=== PATIENT | female | born 1970 | race Caucasian/White ===

== ENCOUNTER 2020-08-17 11:16 | Inpatient (IN) ==
[2020-08-17 12:14] LABS: Basophils % 0.3 %; Eosinophils # 0.3 K/mcL (0.0-0.6); Eosinophils % 3.2 %; Hematocrit 42.7 % (35.3-44.9); Hemoglobin 13.6 g/dL (11.5-15.4); Immature Granulocytes % 0.1 % (0-4); Lymphocytes # 2.5 K/mcL (0.6-4.6); Lymphocytes % 31.7 %; Mean Corpuscular HGB Conc 31.9 g/dL (31.6-35.5); Mean Corpuscular Hemoglobin 30.4 pg (28.0-33.3); Mean Corpuscular Volume 95.5 fL (83.0-100.0); Monocytes # 0.5 K/mcL (0.0-1.3); Monocytes % 5.7 %; Neutrophils # 4.7 K/mcL (1.6-8.9); Platelet Count 235 K/mcL (140-400); Red Blood Count 4.47 M/mcL (3.82-4.97); Red Cell Distribution Width 14.2 % (11.5-14.5); White Blood Count 7.9 K/mcL (4.3-11.1)
[2020-08-17 12:19] LABS: INR 1.1; Prothrombin Time 12.9 Seconds (9.4-12.1)
[2020-08-17 12:36] LABS: Alanine Aminotransferase 8 Units/L (7-52); Albumin/Globulin Ratio 1.3 (1.1-2.2); Alkaline Phosphatase 106 Units/L (34-104); Aspartate Amino Transferase 10 Units/L (13-39); BUN/Creatinine Ratio 17 (6-26); Bilirubin,Direct 0.1 mg/dL (0.0-0.2); Bilirubin,Indirect 0.3 mg/dL (0.0-1.0); Bilirubin,Total 0.4 mg/dL (0.3-1.0); Blood Urea Nitrogen 11 mg/dL (6-20); Calcium 9.3 mg/dL (8.6-10.3); Carbon Dioxide 29 mEq/L (23-29); Chloride 103 mEq/L (98-107); Globulin 3.1 g/dL (2.4-3.5); Glucose 99 mg/dL (70-105); Osmolality,Calculated 285 (280-300); Potassium 3.7 mEq/L (3.5-5.1); Sodium 138 mEq/L (136-145); Total Protein 7.1 g/dL (6.4-8.9); eGFR For African Americans > 60 (> 60); eGFR For Non-African Americans > 60 (> 60)
[2020-08-17 13:13] LABS: Adenovirus Not Detected (Not Detect); Bordetella Pertussis Not Detected (Not Detect); Chlamydophila pneumoniae Not Detected (Not Detect); Coronavirus 229E Not Detected (Not Detect); Coronavirus HKU1 Not Detected (Not Detect); Coronavirus NL63 Not Detected (Not Detect); Coronavirus OC43 Not Detected (Not Detect); Human Metapneumovirus Not Detected (Not Detect); Human Rhinovirus/Enterovirus Not Detected (Not Detect); Influenza A Subtype 2009 H1 Not Detected (Not Detect); Influenza B Not Detected (Not Detect); Mycoplasma pneumoniae Not Detected (Not Detect); Parainfluenza Virus 1 Not Detected (Not Detect); Parainfluenza Virus 2 Not Detected (Not Detect); Parainfluenza Virus 3 Not Detected (Not Detect); Parainfluenza Virus 4 Not Detected (Not Detect); Respiratory Syncytial Virus Not Detected (Not Detect); SARS-CoV-2 Not Detected (Not Detect)
[2020-08-17] MEDS ORDERED: Ipratropium/Albuterol Neb 3 ML IH ONE (13:32)
[2020-08-17] MEDS ORDERED: Isovue-370 500 ML BOTTLE IVP ONE (13:32)
[2020-08-17 14:35] LABS: Troponin I < 0.03 ng/mL (< 0.04)
[2020-08-17] MEDS ORDERED: methylPREDNISolone 125 MG/2 ML VIAL IVP ONE (15:04)
[2020-08-17] MEDS ORDERED: levoFLOXacin 750 MG/150 ML 750 MG/150 ML BAG IVPB ONE (15:16)
[2020-08-17] MEDS ORDERED: Naloxone 0.4 MG/ML INJ IVP PRN (16:49)
[2020-08-17] MEDS ORDERED: Acetaminophen 325 MG TABLET PO PRN (16:51)
[2020-08-17 17:13] LABS: Chol/HDL Ratio 6.8 (0-4.9); Cholesterol 226 mg/dL (< 200); HDL Cholesterol 33 mg/dL (40-59); LDL Cholesterol,Calculated 160 mg/dL (< 100); Triglycerides 167 mg/dL (< 150)
[2020-08-17] MEDS ORDERED: ALPRAZolam 1 MG TABLET PO ONE (20:27)
[2020-08-17] MEDS: *HR* Enoxaparin 40 MG/0.4 ML SYRINGE SQ SCH (20:35)
[2020-08-17] MEDS: Nicotine 14 MG PATCH.TD24 TD SCH (20:35)
[2020-08-17] MEDS: Ipratropium 1 PUFF INHALER IH SCH (21:35)
[2020-08-18] MEDS: Ipratropium 1 PUFF INHALER IH SCH ×4 (03:13→22:03)
[2020-08-18 06:56] LABS: Basophils % 0.1 %; Hematocrit 41.9 % (35.3-44.9); Hemoglobin 13.2 g/dL (11.5-15.4); Immature Granulocytes % 0.4 % (0-4); Lymphocytes # 1.1 K/mcL (0.6-4.6); Mean Corpuscular HGB Conc 31.5 g/dL (31.6-35.5); Mean Corpuscular Volume 95.2 fL (83.0-100.0); Mean Platelet Volume 10.5 fL (9.4-12.4); Monocytes # 0.2 K/mcL (0.0-1.3); Monocytes % 1.5 %; Neutrophils # 9.7 K/mcL (1.6-8.9); Platelet Count 232 K/mcL (140-400); Red Cell Distribution Width 13.8 % (11.5-14.5)
[2020-08-18 07:13] LABS: Alanine Aminotransferase 8 Units/L (7-52); Albumin 3.9 g/dL (3.5-5.7); Albumin/Globulin Ratio 1.3 (1.1-2.2); Alkaline Phosphatase 103 Units/L (34-104); Aspartate Amino Transferase 9 Units/L (13-39); BUN/Creatinine Ratio 22 (6-26); Bilirubin,Total 0.3 mg/dL (0.3-1.0); Blood Urea Nitrogen 15 mg/dL (6-20); Calcium 9.6 mg/dL (8.6-10.3); Carbon Dioxide 31 mEq/L (23-29); Chloride 101 mEq/L (98-107); Glucose 144 mg/dL (70-105); Magnesium 1.9 mg/dL (1.6-2.6); Osmolality,Calculated 287 (280-300); Phosphorous 2.6 mg/dL (2.7-4.5); Potassium 4.1 mEq/L (3.5-5.1); Sodium 137 mEq/L (136-145); Total Protein 6.9 g/dL (6.4-8.9); eGFR For African Americans > 60 (> 60); eGFR For Non-African Americans > 60 (> 60)
[2020-08-18 07:24] LABS: Lactate Dehydrogenase 113 Units/L (140-271)
[2020-08-18 07:32] LABS: Ferritin 29 ng/mL (10-120)
[2020-08-18] MEDS ORDERED: GuaiFENesin Liq 200 MG/10 ML UDC PO PRN (08:50)
[2020-08-18] MEDS ORDERED: Furosemide 40 MG TABLET PO SCH (09:00)
[2020-08-18] MEDS ORDERED: ALPRAZolam 1 MG TABLET PO SCH (09:00)
[2020-08-18] MEDS: *HR* Enoxaparin 40 MG/0.4 ML SYRINGE SQ SCH ×2 (09:17→20:31)
[2020-08-18] MEDS: Gabapentin 300 MG CAPSULE PO SCH ×4 (09:17→20:32)
[2020-08-18] MEDS: Nicotine 14 MG PATCH.TD24 TD SCH (09:17)
[2020-08-18 09:18] LABS: C-Reactive Protein 38 mg/L (Less than 10)
[2020-08-18] MEDS ORDERED: ALPRAZolam 0.5 MG TABLET PO PRN (13:54)
[2020-08-18] MEDS: levoFLOXacin 750 MG/150 ML 750 MG/150 ML BAG IVPB SCH (16:44)
[2020-08-18] MEDS: Dexamethasone 4 MG/ML VIAL IVP SCH (16:46)
[2020-08-18] MEDS: risperiDONE 0.25 MG TABLET PO SCH ×2 (20:31)
[2020-08-18] MEDS: *HR* Buprenorphine HCl 2 MG SUBLINGUAL TABLET SL SCH (20:32)
[2020-08-18] MEDS: Loratadine 10 MG TABLET PO SCH (20:32)
[2020-08-18] MEDS: Furosemide 40 MG/4 ML VIAL IVP SCH (20:32)
[2020-08-19 02:25] LABS: Hematocrit 41.1 % (35.3-44.9); Hemoglobin 12.8 g/dL (11.5-15.4); Mean Corpuscular HGB Conc 31.1 g/dL (31.6-35.5); Mean Corpuscular Hemoglobin 30.3 pg (28.0-33.3); Mean Corpuscular Volume 97.2 fL (83.0-100.0); Mean Platelet Volume 10.6 fL (9.4-12.4); Platelet Count 228 K/mcL (140-400); Red Blood Count 4.23 M/mcL (3.82-4.97); Red Cell Distribution Width 13.9 % (11.5-14.5); White Blood Count 16.1 K/mcL (4.3-11.1)
[2020-08-19 02:40] LABS: BUN/Creatinine Ratio 24 (6-26); Blood Urea Nitrogen 18 mg/dL (6-20); Calcium 9.6 mg/dL (8.6-10.3); Carbon Dioxide 31 mEq/L (23-29); Chloride 96 mEq/L (98-107); Glucose 186 mg/dL (70-105); Osmolality,Calculated 289 (280-300); Potassium 4.1 mEq/L (3.5-5.1); Sodium 136 mEq/L (136-145); eGFR For African Americans > 60 (> 60); eGFR For Non-African Americans > 60 (> 60)
[2020-08-19] MEDS: Ipratropium 1 PUFF INHALER IH SCH ×4 (03:21→22:53)
[2020-08-19] MEDS: risperiDONE 0.25 MG TABLET PO SCH ×2 (09:15→14:08)
[2020-08-19] MEDS: Loratadine 10 MG TABLET PO SCH (09:15)
[2020-08-19] MEDS: *HR* Buprenorphine HCl 2 MG SUBLINGUAL TABLET SL SCH (09:15)
[2020-08-19] MEDS: Furosemide 40 MG/4 ML VIAL IVP SCH (09:16)
[2020-08-19] MEDS: Dexamethasone 4 MG/ML VIAL IVP SCH (09:16)
[2020-08-19] MEDS: Nicotine 14 MG PATCH.TD24 TD SCH (09:17)
[2020-08-19] MEDS: *HR* Enoxaparin 40 MG/0.4 ML SYRINGE SQ SCH (09:17)
[2020-08-19] MEDS: Gabapentin 300 MG CAPSULE PO SCH ×3 (09:19→14:06)
[2020-08-19] MEDS ORDERED: NON-FORMULARY MEDICATION 1 EACH EACH (Duloxetine Hcl [Cymbalta] 60 MG) PO SCH (14:45)
[2020-08-19] MEDS ORDERED: Lurasidone 20 MG TABLET PO SCH (14:45)
[2020-08-19] MEDS ORDERED: Gabapentin 300 MG CAPSULE PO SCH (15:00)
[2020-08-19] MEDS: levoFLOXacin 750 MG/150 ML 750 MG/150 ML BAG IVPB SCH (15:46)
[2020-08-19 17:25] VITALS: BP 109/93
== END 2020-08-19 16:50 | disposition home or self-care (01) | DRG 139 ==
LOC: EMEROOARM 11:16 → 2NENU 11:16 → SUATTDRO 16:02 → 2NENU 18:14
PROVIDERS: ADMIT Internal Medicine; ATTEND Internal Medicine

== ENCOUNTER 2022-01-02 15:53 | Inpatient (IN) ==
[2022-01-02 17:12] LABS: Bilirubin,Urine Negative (Negative); Blood,Urine Negative (Negative); Clarity,Urine Clear (Clear); Color,Urine Yellow (Yellow); Glucose,Urine (UA) Normal (Normal); Ketones,Urine Negative (Negative); Leukocyte Esterase,Urine Negative (Negative); Nitrite,Urine Negative (Negative); PH,Urine 6.5 pH Units (5.0-8.0); Protein,Urine Trace mg/dL (Neg-Trace); Specific Gravity,Urine 1.015 (1.010-1.025)
[2022-01-02 17:19] LABS: Basophils % 0.3 %; Eosinophils % 0.6 %; Hematocrit 48.1 % (35.3-44.9); Immature Granulocytes % 0.6 % (0-4); Lymphocytes # 1.8 K/mcL (0.6-4.6); Lymphocytes % 27.3 %; Mean Corpuscular HGB Conc 31.2 g/dL (31.6-35.5); Mean Corpuscular Hemoglobin 25.5 pg (28.0-33.3); Mean Corpuscular Volume 81.7 fL (83.0-100.0); Mean Platelet Volume 10.2 fL (9.4-12.4); Monocytes # 0.4 K/mcL (0.0-1.3); Monocytes % 5.3 %; Neutrophils # 4.4 K/mcL (1.6-8.9); Nucleated Red Blood Cells 0.3 /100 WBC (0); Platelet Count 301 K/mcL (140-400); Red Blood Count 5.89 M/mcL (3.82-4.97); Red Cell Distribution Width 22.1 % (11.5-14.5); Segmented Neutrophils % 65.9 %; White Blood Count 6.6 K/mcL (4.3-11.1)
[2022-01-02 17:23] LABS: Amphetamine Screen,Urine Negative ng/mL (Cutoff=1000); Barbiturate Screen,Urine Negative ng/mL (Cutoff=200); Benzodiazepines Screen,Urine Positive ng/mL (Cutoff=200); Cannabinoid Screen,Urine Negative ng/mL (Cutoff = 50); Cocaine Screen,Urine Negative ng/mL (Cutoff= 300); Opiate Screen,Urine Negative ng/mL (Cutoff=300); Phencyclidine Screen,Urine Negative ng/mL (Cutoff=25)
[2022-01-02 17:41] LABS: Calcium 10.4 mg/dL (8.6-10.3); Potassium 3.6 mEq/L (3.5-5.1)
[2022-01-02] MEDS ORDERED: 0.9 % Sodium Chloride 1,000 ML IVC ONE ×2 (18:03→22:16)
[2022-01-02 18:36] LABS: VBG HCO3 42 mEq/L (21-27); VBG PCO2 38 mmHg (41-51); VBG PH 7.65 pH Units (7.32-7.42); VBG PO2 90 mmHg (25-50)
[2022-01-02] MEDS ORDERED: Aspirin 325 MG TABLET PO ONE (19:48)
[2022-01-02] MEDS ORDERED: *HR* Heparin 5,000 UNIT/ML VIAL IVP PRN (19:49)
[2022-01-02] MEDS ORDERED: *HR* Heparin 5,000 UNIT/ML VIAL IVP ONE (19:49)
[2022-01-02] MEDS: Heparin 25,000UNIT/250ML 1/2NS 25,000 UNIT/250 ML IV.SOLN IVC SCH (20:03)
[2022-01-02 20:35] LABS: Hematocrit 47.4 % (35.3-44.9); Hemoglobin 14.8 g/dL (11.5-15.4); Mean Corpuscular HGB Conc 31.2 g/dL (31.6-35.5); Mean Corpuscular Hemoglobin 25.5 pg (28.0-33.3); Mean Corpuscular Volume 81.7 fL (83.0-100.0); Mean Platelet Volume 10.1 fL (9.4-12.4); Platelet Count 270 K/mcL (140-400); Red Cell Distribution Width 21.6 % (11.5-14.5); White Blood Count 8.7 K/mcL (4.3-11.1)
[2022-01-02 20:46] LABS: Heparin anti-factor XA UFH < 0.04 IU/mL (0.30-0.70)
[2022-01-02 20:47] LABS: INR 1.2; Prothrombin Time 13.1 Seconds (9.4-12.1)
[2022-01-02] MEDS ORDERED: Naloxone 0.4 MG/ML INJ IVP PRN ×2 (21:03→21:05)
[2022-01-02] MEDS ORDERED: Acetaminophen 325 MG TABLET PO PRN (21:05)
[2022-01-02] MEDS ORDERED: 0.9 % Sodium Chloride 1,000 ML IVC SCH (21:15)
[2022-01-02 22:20] LABS: Acetaminophen < 10 mcg/mL (10-20); Salicylate < 2.5 mg/dL (15.0-30.0)
[2022-01-02] MEDS ORDERED: Perflutren Lipid Microsphere 1.3 ML in 0.9 % Sodium Chloride 8.7 ML IVP PRN (22:45)
[2022-01-02] MEDS ORDERED: ALPRAZolam 0.5 MG TABLET PO PRN (22:48)
[2022-01-02 23:19] LABS: ABG Base Excess 19 mEq/L (-2 to 3); ABG HCO3 44 mEq/L (21-27); ABG Oxygen Saturation 93 % (95-98); ABG PCO2 47 mmHg (35-45); ABG PH 7.58 pH Units (7.32-7.45); ABG PO2 58 mmHg (85-104); ABG TCO2 45 mEq/L (20-26)
[2022-01-02] MEDS: 0.9 % Sodium Chloride 1,000 ML IVC SCH (23:57)
[2022-01-03] MEDS: *HR* Heparin 5,000 UNIT/ML VIAL IVP PRN ×2 (03:07→10:23)
[2022-01-03 04:48] LABS: ABG Base Excess 13 mEq/L (-2 to 3); ABG HCO3 40 mEq/L (21-27); ABG Oxygen Saturation 93 % (95-98); ABG PCO2 60 mmHg (35-45); ABG PH 7.44 pH Units (7.32-7.45); ABG PO2 67 mmHg (85-104); ABG TCO2 42 mEq/L (20-26)
[2022-01-03 06:07] LABS: Basophils % 0.3 %; Eosinophils # 0.1 K/mcL (0.0-0.6); Eosinophils % 1.2 %; Hematocrit 40.7 % (35.3-44.9); Immature Granulocytes % 0.4 % (0-4); Lymphocytes # 2.3 K/mcL (0.6-4.6); Lymphocytes % 34.1 %; Mean Corpuscular HGB Conc 30.5 g/dL (31.6-35.5); Mean Corpuscular Hemoglobin 25.4 pg (28.0-33.3); Mean Corpuscular Volume 83.4 fL (83.0-100.0); Mean Platelet Volume 10.3 fL (9.4-12.4); Monocytes # 0.3 K/mcL (0.0-1.3); Monocytes % 4.8 %; Platelet Count 214 K/mcL (140-400); Red Blood Count 4.88 M/mcL (3.82-4.97); Segmented Neutrophils % 59.2 %; White Blood Count 6.7 K/mcL (4.3-11.1)
[2022-01-03 06:08] LABS: Hemoglobin 12.4 g/dL (11.5-15.4)
[2022-01-03 06:42] LABS: Albumin 3.2 g/dL (3.5-5.7); Albumin/Globulin Ratio 1.1 (1.1-2.2); Bilirubin,Total 1.4 mg/dL (0.3-1.0); Calcium 9.2 mg/dL (8.6-10.3); Globulin 2.8 g/dL (2.4-3.5); Magnesium 2.2 mg/dL (1.6-2.6); Phosphorous 3.4 mg/dL (2.7-4.5)
[2022-01-03] MEDS: 0.9 % Sodium Chloride 1,000 ML IVC SCH (07:11)
[2022-01-03] MEDS: *HR* Buprenorphine HCl 8 MG TAB.SUBL SL SCH (08:39)
[2022-01-03] MEDS ORDERED: Nitroglycerin 0.4 MG TAB.SUBL SL PRN (10:42)
[2022-01-03] MEDS: 0.9 % Sodium Chloride w KCl 40 MEQ/1,000 ML MLS IVC SCH (10:58)
[2022-01-03] MEDS: Nystatin POWDER 30 GM BOTTLE TP SCH ×2 (11:05→22:07)
[2022-01-03 14:07] LABS: BUN/Creatinine Ratio 25 (6-26); Blood Urea Nitrogen 26 mg/dL (6-20); Calcium 9.8 mg/dL (8.6-10.3); Carbon Dioxide 38 mEq/L (23-29); Chloride 88 mEq/L (98-107); Glucose 91 mg/dL (70-105); Osmolality,Calculated 288 (280-300); Potassium 2.5 mEq/L (3.5-5.1); Sodium 137 mEq/L (136-145); eGFR For African Americans > 60 (> 60); eGFR For Non-African Americans 56 (> 60)
[2022-01-03] MEDS: ALPRAZolam 0.5 MG TABLET PO SCH ×2 (15:36→20:35)
[2022-01-03] MEDS: Heparin 25,000UNIT/250ML 1/2NS 25,000 UNIT/250 ML IV.SOLN IVC SCH (16:51)
[2022-01-03 17:56] LABS: BUN/Creatinine Ratio 26 (6-26); Blood Urea Nitrogen 24 mg/dL (6-20); Calcium 9.3 mg/dL (8.6-10.3); Carbon Dioxide 37 mEq/L (23-29); Chloride 92 mEq/L (98-107); Glucose 79 mg/dL (70-105); Osmolality,Calculated 287 (280-300); Potassium 2.4 mEq/L (3.5-5.1); Sodium 137 mEq/L (136-145); eGFR For African Americans > 60 (> 60); eGFR For Non-African Americans > 60 (> 60)
[2022-01-03 22:11] LABS: % Iron Saturation 7 % (15-50); Iron 36 mcg/dL (50-170); Transferrin 378 mg/dL (203-362)
[2022-01-03 22:19] LABS: BUN/Creatinine Ratio 23 (6-26); Blood Urea Nitrogen 22 mg/dL (6-20); Calcium 9.5 mg/dL (8.6-10.3); Carbon Dioxide 38 mEq/L (23-29); Chloride 91 mEq/L (98-107); Glucose 88 mg/dL (70-105); Osmolality,Calculated 285 (280-300); Potassium 2.5 mEq/L (3.5-5.1); Sodium 136 mEq/L (136-145); eGFR For African Americans > 60 (> 60); eGFR For Non-African Americans > 60 (> 60)
[2022-01-03] MEDS ORDERED: Iron Sucrose Complex 200 MG in 0.9 % Sodium Chloride 100 ML IVPB ONE (22:20)
[2022-01-03] MEDS ORDERED: Potassium Chloride Elixir 20 MEQ/15 ML UDC PO ONE (22:20)
[2022-01-04 00:56] LABS: Basophils % 0.3 %; Eosinophils # 0.2 K/mcL (0.0-0.6); Eosinophils % 2.3 %; Hematocrit 41.7 % (35.3-44.9); Hemoglobin 13.1 g/dL (11.5-15.4); Immature Granulocytes % 0.4 % (0-4); Lymphocytes # 2.3 K/mcL (0.6-4.6); Lymphocytes % 30.8 %; Mean Corpuscular HGB Conc 31.4 g/dL (31.6-35.5); Mean Corpuscular Volume 82.9 fL (83.0-100.0); Mean Platelet Volume 10.1 fL (9.4-12.4); Monocytes # 0.4 K/mcL (0.0-1.3); Monocytes % 4.7 %; Neutrophils # 4.6 K/mcL (1.6-8.9); Platelet Count 224 K/mcL (140-400); Red Blood Count 5.03 M/mcL (3.82-4.97); Red Cell Distribution Width 22.2 % (11.5-14.5); Segmented Neutrophils % 61.5 %; White Blood Count 7.5 K/mcL (4.3-11.1)
[2022-01-04 01:02] LABS: Chol/HDL Ratio 5.8 (0-4.9)
[2022-01-04 01:03] LABS: BUN/Creatinine Ratio 22 (6-26); Blood Urea Nitrogen 20 mg/dL (6-20); Calcium 9.6 mg/dL (8.6-10.3); Carbon Dioxide 35 mEq/L (23-29); Chloride 92 mEq/L (98-107); Glucose 75 mg/dL (70-105); Magnesium 1.9 mg/dL (1.6-2.6); Osmolality,Calculated 281 (280-300); Potassium 2.6 mEq/L (3.5-5.1); Sodium 135 mEq/L (136-145); eGFR For African Americans > 60 (> 60); eGFR For Non-African Americans > 60 (> 60)
[2022-01-04] MEDS: Melatonin 3 MG TABLET PO PRN (02:08)
[2022-01-04] MEDS: Ondansetron 4 MG/2 ML VIAL IVP PRN ×4 (02:19→23:40)
[2022-01-04] MEDS: *HR* Heparin 5,000 UNIT/ML VIAL IVP PRN ×3 (02:19→22:38)
[2022-01-04] MEDS: 0.9 % Sodium Chloride w KCl 40 MEQ/1,000 ML MLS IVC SCH ×4 (07:24→23:16)
[2022-01-04] MEDS: *HR* Buprenorphine HCl 8 MG TAB.SUBL SL SCH (08:19)
[2022-01-04] MEDS: ALPRAZolam 0.5 MG TABLET PO SCH ×3 (08:19→20:45)
[2022-01-04] MEDS: Nystatin POWDER 30 GM BOTTLE TP SCH ×2 (08:20→21:20)
[2022-01-04] MEDS: Aspirin 81 MG TAB.CHEW PO SCH (08:20)
[2022-01-04] MEDS ORDERED: Potassium Chloride Elixir 20 MEQ/15 ML UDC PO ONE (08:45)
[2022-01-04] MEDS: 0.9 % Sodium Chloride 1,000 ML IVC SCH ×2 (09:28→15:41)
[2022-01-04] MEDS: Heparin 25,000UNIT/250ML 1/2NS 25,000 UNIT/250 ML IV.SOLN IVC SCH (12:59)
[2022-01-04 15:24] LABS: BUN/Creatinine Ratio 16 (6-26); Blood Urea Nitrogen 13 mg/dL (6-20); Calcium 9.7 mg/dL (8.6-10.3); Carbon Dioxide 37 mEq/L (23-29); Chloride 94 mEq/L (98-107); Glucose 111 mg/dL (70-105); Osmolality,Calculated 285 (280-300); Potassium 3.4 mEq/L (3.5-5.1); Sodium 137 mEq/L (136-145); eGFR For African Americans > 60 (> 60); eGFR For Non-African Americans > 60 (> 60)
[2022-01-04] MEDS ORDERED: Gadolinium Contrast Agent (WT Based) IV PRN (16:31)
[2022-01-04] MEDS: Nicotine 21 MG PATCH.TD24 TD SCH (17:58)
[2022-01-04] MEDS: Pantoprazole 40 MG VIAL IVP SCH (20:45)
[2022-01-05] MEDS: 0.9 % Sodium Chloride 1,000 ML IVC SCH (02:39)
[2022-01-05] MEDS: Ondansetron 4 MG/2 ML VIAL IVP PRN ×2 (03:49→08:49)
[2022-01-05] MEDS: Heparin 25,000UNIT/250ML 1/2NS 25,000 UNIT/250 ML IV.SOLN IVC SCH (05:40)
[2022-01-05 06:10] LABS: BUN/Creatinine Ratio 11 (6-26); Blood Urea Nitrogen 8 mg/dL (6-20); Calcium 9.8 mg/dL (8.6-10.3); Carbon Dioxide 33 mEq/L (23-29); Chloride 95 mEq/L (98-107); Potassium 2.9 mEq/L (3.5-5.1); Sodium 137 mEq/L (136-145); eGFR For African Americans > 60 (> 60); eGFR For Non-African Americans > 60 (> 60)
[2022-01-05 06:13] LABS: Basophils % 0.5 %; Eosinophils # 0.2 K/mcL (0.0-0.6); Eosinophils % 3.1 %; Hematocrit 41.6 % (35.3-44.9); Hemoglobin 12.5 g/dL (11.5-15.4); Immature Granulocytes % 0.3 % (0-4); Lymphocytes # 2.2 K/mcL (0.6-4.6); Mean Corpuscular Hemoglobin 25.4 pg (28.0-33.3); Mean Corpuscular Volume 84.6 fL (83.0-100.0); Mean Platelet Volume 10.3 fL (9.4-12.4); Monocytes # 0.2 K/mcL (0.0-1.3); Neutrophils # 3.4 K/mcL (1.6-8.9); Platelet Count 206 K/mcL (140-400); Red Blood Count 4.92 M/mcL (3.82-4.97); Red Cell Distribution Width 22.1 % (11.5-14.5); Segmented Neutrophils % 56.1 %; White Blood Count 6.1 K/mcL (4.3-11.1)
[2022-01-05 08:35] LABS: Glucose 77 mg/dL (70-105); Osmolality,Calculated 281 (280-300)
[2022-01-05] MEDS: ALPRAZolam 0.5 MG TABLET PO SCH ×2 (08:44→20:15)
[2022-01-05] MEDS: Aspirin 81 MG TAB.CHEW PO SCH (08:44)
[2022-01-05] MEDS: Pantoprazole 40 MG VIAL IVP SCH (08:44)
[2022-01-05] MEDS: Nicotine 21 MG PATCH.TD24 TD SCH (08:45)
[2022-01-05] MEDS: *HR* Buprenorphine HCl 8 MG TAB.SUBL SL SCH (08:49)
[2022-01-05] MEDS: Nystatin POWDER 30 GM BOTTLE TP SCH ×2 (08:50→20:16)
[2022-01-05] MEDS: *HR* Heparin 5,000 UNIT/ML VIAL SQ SCH ×2 (13:12→20:15)
[2022-01-05 15:43] LABS: BUN/Creatinine Ratio 9 (6-26); Blood Urea Nitrogen 7 mg/dL (6-20); Calcium 9.9 mg/dL (8.6-10.3); Carbon Dioxide 33 mEq/L (23-29); Chloride 96 mEq/L (98-107); Glucose 92 mg/dL (70-105); Osmolality,Calculated 280 (280-300); Potassium 4.1 mEq/L (3.5-5.1); Sodium 136 mEq/L (136-145); eGFR For African Americans > 60 (> 60); eGFR For Non-African Americans > 60 (> 60)
[2022-01-05] MEDS: 0.9 % Sodium Chloride w KCl 40 MEQ/1,000 ML MLS IVC SCH (16:10)
[2022-01-06] MEDS: 0.9 % Sodium Chloride w KCl 40 MEQ/1,000 ML MLS IVC SCH (00:55)
[2022-01-06] MEDS: *HR* Heparin 5,000 UNIT/ML VIAL SQ SCH ×3 (05:03→22:43)
[2022-01-06 07:07] LABS: BUN/Creatinine Ratio 9 (6-26); Blood Urea Nitrogen 6 mg/dL (6-20); Calcium 9.6 mg/dL (8.6-10.3); Carbon Dioxide 32 mEq/L (23-29); Chloride 99 mEq/L (98-107); Glucose 90 mg/dL (70-105); Osmolality,Calculated 283 (280-300); Potassium 3.6 mEq/L (3.5-5.1); Sodium 138 mEq/L (136-145); eGFR For African Americans > 60 (> 60); eGFR For Non-African Americans > 60 (> 60)
[2022-01-06] MEDS: Nicotine 21 MG PATCH.TD24 TD SCH (10:33)
[2022-01-06] MEDS: Magnesium Oxide 400 MG TABLET PO SCH ×2 (10:34→22:42)
[2022-01-06] MEDS: Nystatin POWDER 30 GM BOTTLE TP SCH ×2 (10:34→22:42)
[2022-01-06] MEDS: Aspirin 81 MG TAB.CHEW PO SCH (10:34)
[2022-01-06] MEDS: ALPRAZolam 0.5 MG TABLET PO SCH ×2 (10:34→22:42)
[2022-01-06] MEDS: *HR* Buprenorphine HCl 8 MG TAB.SUBL SL SCH (10:39)
[2022-01-06] MEDS ORDERED: *HR* LORazepam 2 MG/ML VIAL IVP ONE (11:17)
[2022-01-06 15:47] LABS: BUN/Creatinine Ratio 10 (6-26); Blood Urea Nitrogen 7 mg/dL (6-20); Calcium 9.6 mg/dL (8.6-10.3); Carbon Dioxide 34 mEq/L (23-29); Chloride 99 mEq/L (98-107); Glucose 99 mg/dL (70-105); Osmolality,Calculated 284 (280-300); Potassium 3.7 mEq/L (3.5-5.1); Sodium 138 mEq/L (136-145); eGFR For African Americans > 60 (> 60); eGFR For Non-African Americans > 60 (> 60)
[2022-01-06] MEDS: Ondansetron 4 MG/2 ML VIAL IVP PRN ×2 (18:18→22:50)
[2022-01-07 06:16] LABS: Basophils % 0.6 %; Eosinophils # 0.2 K/mcL (0.0-0.6); Eosinophils % 3.2 %; Hematocrit 38.7 % (35.3-44.9); Hemoglobin 11.5 g/dL (11.5-15.4); Immature Granulocytes % 0.2 % (0-4); Lymphocytes # 1.9 K/mcL (0.6-4.6); Lymphocytes % 37.9 %; Mean Corpuscular HGB Conc 29.7 g/dL (31.6-35.5); Mean Corpuscular Hemoglobin 25.6 pg (28.0-33.3); Mean Corpuscular Volume 86.2 fL (83.0-100.0); Mean Platelet Volume 9.9 fL (9.4-12.4); Monocytes # 0.3 K/mcL (0.0-1.3); Monocytes % 5.5 %; Neutrophils # 2.7 K/mcL (1.6-8.9); Platelet Count 198 K/mcL (140-400); Red Blood Count 4.49 M/mcL (3.82-4.97); Red Cell Distribution Width 22.4 % (11.5-14.5); Segmented Neutrophils % 52.6 %; White Blood Count 5.1 K/mcL (4.3-11.1)
[2022-01-07 06:36] LABS: BUN/Creatinine Ratio 13 (6-26); Blood Urea Nitrogen 9 mg/dL (6-20); Calcium 9.8 mg/dL (8.6-10.3); Carbon Dioxide 32 mEq/L (23-29); Chloride 99 mEq/L (98-107); Glucose 96 mg/dL (70-105); Osmolality,Calculated 283 (280-300); Potassium 3.7 mEq/L (3.5-5.1); Sodium 137 mEq/L (136-145); eGFR For African Americans > 60 (> 60); eGFR For Non-African Americans > 60 (> 60)
[2022-01-07] MEDS: *HR* Heparin 5,000 UNIT/ML VIAL SQ SCH ×3 (07:00→20:31)
[2022-01-07] MEDS: *HR* Buprenorphine HCl 8 MG TAB.SUBL SL SCH (10:04)
[2022-01-07] MEDS: Magnesium Oxide 400 MG TABLET PO SCH ×2 (10:04→20:31)
[2022-01-07] MEDS: Aspirin 81 MG TAB.CHEW PO SCH (10:04)
[2022-01-07] MEDS: ALPRAZolam 0.5 MG TABLET PO SCH ×2 (10:05→20:31)
[2022-01-07] MEDS: Nystatin POWDER 30 GM BOTTLE TP SCH ×2 (10:09→20:33)
[2022-01-07] MEDS: Nicotine 21 MG PATCH.TD24 TD SCH (10:09)
[2022-01-07] MEDS: Ondansetron 4 MG/2 ML VIAL IVP PRN (15:44)
[2022-01-07] MEDS ORDERED: Ketorolac 30 MG/ML VIAL IVP ONE (21:10)
[2022-01-07] MEDS ORDERED: 0.9 % Sodium Chloride 500 ML IVC SCH (21:15)
[2022-01-08] MEDS: Melatonin 3 MG TABLET PO PRN ×2 (00:39→22:48)
[2022-01-08] MEDS: *HR* Heparin 5,000 UNIT/ML VIAL SQ SCH ×3 (06:14→20:35)
[2022-01-08 06:41] LABS: BUN/Creatinine Ratio 17 (6-26); Blood Urea Nitrogen 13 mg/dL (6-20); Calcium 9.7 mg/dL (8.6-10.3); Carbon Dioxide 33 mEq/L (23-29); Chloride 99 mEq/L (98-107); Glucose 90 mg/dL (70-105); Osmolality,Calculated 286 (280-300); Potassium 3.7 mEq/L (3.5-5.1); Sodium 138 mEq/L (136-145); eGFR For African Americans > 60 (> 60); eGFR For Non-African Americans > 60 (> 60)
[2022-01-08] MEDS: Magnesium Oxide 400 MG TABLET PO SCH ×2 (08:33→20:33)
[2022-01-08] MEDS: ALPRAZolam 0.5 MG TABLET PO SCH ×2 (08:33→20:33)
[2022-01-08] MEDS: Nicotine 21 MG PATCH.TD24 TD SCH (08:33)
[2022-01-08] MEDS: Aspirin 81 MG TAB.CHEW PO SCH (08:33)
[2022-01-08] MEDS: Nystatin POWDER 30 GM BOTTLE TP SCH ×2 (08:34→20:35)
[2022-01-08] MEDS: *HR* Buprenorphine HCl 8 MG TAB.SUBL SL SCH (08:36)
[2022-01-08] MEDS: 0.9 % Sodium Chloride w KCl 40 MEQ/1,000 ML MLS IVC SCH (17:04)
[2022-01-08 22:00] LABS: Bacteria,Urine Few per hpf (None-Few); Bilirubin,Urine Negative (Negative); Blood,Urine Negative (Negative); Clarity,Urine Clear (Clear); Color,Urine Light-Yellow (Yellow); Glucose,Urine (UA) Normal (Normal); Hyaline Casts,Urine Few per lpf (None Seen); Ketones,Urine Negative (Negative); Leukocyte Esterase,Urine Moderate (Negative); Mucus,Urine Few per lpf (None-Few); Nitrite,Urine Positive (Negative); Protein,Urine 30 mg/dL (Neg-Trace); Specific Gravity,Urine 1.018 (1.010-1.025); Squamous Epithelial Cell,Urine Few per hpf (None-Few); Urobilinogen,Urine Normal (Normal); WBC,Urine 30-50 per hpf (0-3)
[2022-01-09] MEDS ORDERED: 0.9 % Sodium Chloride 500 ML IVC ONE (02:29)
[2022-01-09] MEDS ORDERED: Albumin 25% 25gram/100mL 25 GM/100 ML IV.SOLN IVPB ONE (02:29)
[2022-01-09] MEDS: levoFLOXacin 750 MG/150 ML 750 MG/150 ML BAG IVPB SCH ×2 (04:40→07:45)
[2022-01-09] MEDS: *HR* Heparin 5,000 UNIT/ML VIAL SQ SCH ×3 (06:18→20:06)
[2022-01-09] MEDS: OLANZapine 10 MG TAB.RAPDIS PO SCH (07:44)
[2022-01-09] MEDS: ALPRAZolam 0.5 MG TABLET PO SCH ×2 (07:44→20:05)
[2022-01-09] MEDS: Aspirin 81 MG TAB.CHEW PO SCH (07:45)
[2022-01-09] MEDS: Magnesium Oxide 400 MG TABLET PO SCH ×2 (07:45→20:06)
[2022-01-09] MEDS: Nicotine 21 MG PATCH.TD24 TD SCH (07:45)
[2022-01-09] MEDS: *HR* Buprenorphine HCl 8 MG TAB.SUBL SL SCH (07:45)
[2022-01-09] MEDS: Nystatin POWDER 30 GM BOTTLE TP SCH ×2 (07:47→20:06)
[2022-01-09] MEDS: Ondansetron 4 MG/2 ML VIAL IVP PRN (08:01)
[2022-01-09 18:08] LABS: VBG Chloride 102 mEq/L (98-107); VBG Creatinine 0.82 mg/dL (0.57-1.11); VBG Glucose 91 mg/dl (65-95)
[2022-01-09 18:09] LABS: Basophils % 0.5 %; Eosinophils # 0.2 K/mcL (0.0-0.6); Eosinophils % 3.8 %; Hematocrit 40.1 % (35.3-44.9); Immature Granulocytes % 0.5 % (0-4); Lymphocytes # 1.5 K/mcL (0.6-4.6); Mean Corpuscular HGB Conc 29.9 g/dL (31.6-35.5); Mean Corpuscular Hemoglobin 25.8 pg (28.0-33.3); Mean Corpuscular Volume 86.2 fL (83.0-100.0); Mean Platelet Volume 10.2 fL (9.4-12.4); Monocytes # 0.2 K/mcL (0.0-1.3); Monocytes % 5.8 %; Neutrophils # 2.1 K/mcL (1.6-8.9); Platelet Count 195 K/mcL (140-400); Red Blood Count 4.65 M/mcL (3.82-4.97); Red Cell Distribution Width 22.2 % (11.5-14.5); Segmented Neutrophils % 52.4 %
[2022-01-09 18:28] LABS: BUN/Creatinine Ratio 15 (6-26); Blood Urea Nitrogen 12 mg/dL (6-20); Calcium 9.6 mg/dL (8.6-10.3); Carbon Dioxide 32 mEq/L (23-29); Chloride 102 mEq/L (98-107); Glucose 93 mg/dL (70-105); Magnesium 1.9 mg/dL (1.6-2.6); Osmolality,Calculated 287 (280-300); Phosphorous 3.4 mg/dL (2.7-4.5); Potassium 4.2 mEq/L (3.5-5.1); Sodium 139 mEq/L (136-145); eGFR For African Americans > 60 (> 60); eGFR For Non-African Americans > 60 (> 60)
[2022-01-09 18:29] LABS: Albumin 3.7 g/dL (3.5-5.7); Albumin/Globulin Ratio 1.4 (1.1-2.2); Bilirubin,Direct 0.1 mg/dL (0.0-0.2); Bilirubin,Indirect 0.3 mg/dL (0.0-1.0); Bilirubin,Total 0.4 mg/dL (0.3-1.0); Globulin 2.6 g/dL (2.4-3.5); Total Protein 6.3 g/dL (6.4-8.9)
[2022-01-09 18:45] LABS: Thyroid Stimulating Hormone 0.831 mcIU/mL (0.340-5.600)
[2022-01-10] MEDS: *HR* Heparin 5,000 UNIT/ML VIAL SQ SCH ×2 (05:38→13:19)
[2022-01-10 07:32] VITALS: TEMP 98.2
[2022-01-10] MEDS ORDERED: Nitrofurantoin (BID) 100 MG CAPSULE PO SCH (08:00)
[2022-01-10] MEDS: cefTRIAXone 1,000 MG in 0.9 % Sodium Chloride 10 ML IVP SCH ×2 (08:15→09:29)
[2022-01-10] MEDS: Nicotine 21 MG PATCH.TD24 TD SCH (08:15)
[2022-01-10] MEDS: Magnesium Oxide 400 MG TABLET PO SCH (08:17)
[2022-01-10] MEDS: ALPRAZolam 0.5 MG TABLET PO SCH (08:17)
[2022-01-10] MEDS: Aspirin 81 MG TAB.CHEW PO SCH (08:17)
[2022-01-10] MEDS: *HR* Buprenorphine HCl 8 MG TAB.SUBL SL SCH (08:17)
[2022-01-10] MEDS: OLANZapine 10 MG TAB.RAPDIS PO SCH (08:17)
[2022-01-10] MEDS: Nystatin POWDER 30 GM BOTTLE TP SCH (08:18)
[2022-01-10] MEDS: Nitrofurantoin (BID) 100 MG CAPSULE PO SCH ×2 (10:00→17:09)
[2022-01-10 13:04] VITALS: BP 116/44; PULSE 51; O2SAT 92
== END 2022-01-10 19:21 | disposition home or self-care (01) | DRG 190 ==
LOC: EMEROOARM 15:53 → 2NENU 15:53 → SUATTDRO 19:55 → 2NENU 21:00 → SUATTDRO 01-04 17:53
PROVIDERS: ADMIT Internal Medicine; ATTEND Internal Medicine